=== PATIENT | female | born 1955 | race Caucasian/White ===

== ENCOUNTER → 2016-08-23 | Emergency (ER) | payer OTHER ==
[~2016-08-23] VITALS: Ht 157.5 cm; Wt 52.0 kg
[~2016-08-23] MED LIST: CLOP75TA28 PO; LORA0.5T PO
--- OUTSIDE RECORDS SUMMARY | 2016-08-23 11:15 | XMS REPORT | Referral Summary ---
Author Author [facility] Organization [facility] Address Unknown Phone Unavailable Care Team Providers Care Kindergarten Assistant Name Role Phone SindiCameron PCP [phone] Encounter GRIS [id number] Date(s): 09/22/14 - 09/22/14 [facility] [address] [place] [address] JG Final: PREOPERATIVE CARDIOVASCULAR EXAMINATION Final: OTHER SPECIFIED PREOPERATIVE EXAMINATION Final: Pre-Procedural Laboratory Examination Final: AORTIC VALVE DISORDERS Final: OSTIUM SECUNDUM TYPE ATRIAL SEPTAL DEFECT Final: Other Nonspecific Abnormal Finding of Lung Field Final: Long-Term (Current) Use of Anticoagulants Final: Long-Term (Current) Use of Other Medications Discharge Disposition: 01-Home or Self Care Attending Physician: Marcel Bush MD Vital Signs No data available for this section Problem List Condition Effective Dates Status Health Status Informant Acute Active pain(Confirmed) At risk of pressure Active sore(Confirmed) ASD (atrial septal Active patient defect)(Confirmed) History of Active patient TIAs(Confirmed) Impaired skin Active integrity(Confirmed) 1 Knowledge Active deficit(Confirmed)2 Vaginal dryness, Active menopausal(Confirmed ) 1Problem added automatically by system based on initiation of Impaired Skin Integrity Plan of [id number] added automatically by system based on initiation of Knowledge Deficit Plan of Care Allergies, Adverse Reactions, Alerts Substance Reaction Severity Status Bactrim Hives Active Medications aspirin 325 mg oral tablet 325 mg 1 tabs, Oral, Daily, 0 Refill(s) Start Date: 02/24/15 Status: Orderedatorvastatin 10 mg oral tablet 10 mg 1 tabs, Oral, Bedtime (once a day), # 30 tabs, 10 Refill(s) Start Date: 09/27/14 Status: OrderedB-Plex (Vitamin B Complex) oral tablet 1 tabs, Oral, Daily, 0 Refill(s) Start Date: 09/17/14 Status: OrderedCalcium 500+D 1 tabs, Chewed, Daily, 0 Refill(s) Start Date: 09/08/14 Status: OrderedImodium A-D See Instructions, 1 tab as needed after each loose stool, 0 Refill(s) Start Date: 09/17/14 Status: OrderedLORazepam 0.5 mg, Oral, Bedtime (once a day), 0 Refill(s) Start Date: 09/08/14 Status: OrderedPlavix 75 mg, Oral, Daily, 0 Refill(s) Start Date: 09/08/14 Status: OrderedPremarin Vaginal 0.5 g, Vaginal, Mon//, 0 Refill(s) Start Date: 02/24/15 Status: OrderedProbiotic Formula 1 caps, Oral, Daily, 0 Refill(s) Start Date: 09/17/14 Status: Ordered Results Hematology Most recent to 1 oldest [Reference Range]: WBC [4.8-10.8 8.2 10*3/uL 10*3/uL] (09/22/14 1:24 PM) RBC [4.00-5.20 4.57 10*6/uL 10*6/uL] (09/22/14 1:24 PM) Hgb [12.0-16.0 14.3 gm/dL gm/dL] (09/22/14 1:24 PM) Hct [37.0-47.0 %] 41.6 % (09/22/14 1:24 PM) MCV [82.0-99.0 fL] 91.0 fL (09/22/14 1:24 PM) MCH [27.0-32.0 pg] 31.3 pg (09/22/14 1:24 PM) MCHC [32.0-36.0 34.4 gm/dL gm/dL] (09/22/14 1:24 PM) RDW [11.5-14.5 %] 12.5 % (09/22/14 1:24 PM) Platelet [150-400 235 10*3/uL 10*3/uL] (09/22/14 1:24 PM) MPV [9.4-12.4 fL] 10.1 fL (09/22/14 1:24 PM) Immature 0.1 % Granulocytes (09/22/14 1:24 PM) [0.0-1.0 %] Neutrophils [51-75 53 % %] (09/22/14 1:24 PM) Lymphocytes [20-46 42 % %] (09/22/14 1:24 PM) Monocytes [4-11 %] 4 % (09/22/14 1:24 PM) Eosinophils [0-4 %] 1 % (09/22/14 1:24 PM) Basophils [0-2 %] 0 % (09/22/14 1:24 PM) Neutro Absolute 4.31 10*3 [1.90-7.00 10*3] (09/22/14 1:24 PM) Lymph Absolute 3.42 10*3 [0.80-3.30 10*3] *HI* (09/22/14 1:24 PM) [place] Absolute 0.33 10*3 [0.30-1.00 10*3] (09/22/14 1:24 PM) Eos Absolute 0.06 10*3 [0.00-0.50 10*3] (09/22/14 1:24 PM) Baso Absolute 0.02 10*3 [0.00-0.20 10*3] (09/22/14 1:24 PM) Nucleated RBC 0.0 /100 WBC Automated [0 /100 (09/22/14 1:24 PM) WBC] Coagulation Most recent to 1 oldest [Reference Range]: INR [0.9-1.2] 0.9 (09/22/14 1:24 PM) PTT [25.0-35.0] 27.6 (09/22/14 1:24 PM) Fibrinogen Lvl 226 mg/dL [187-520 mg/dL] (09/22/14 1:24 PM) Chemistry Most recent to 1 oldest [Reference Range]: Sodium Lvl [136-144 138 mEq/L mEq/L] (09/22/14 1:24 PM) Potassium Lvl 3.6 mEq/L [3.6-5.1 mEq/L] (09/22/14 1:24 PM) Chloride [99-109 104 mEq/L mEq/L] (09/22/14 1:24 PM) CO2 [22-32 mEq/L] 28 mEq/L (09/22/14 1:24 PM) AGAP [3-20] 6 (09/22/14 1:24 PM) BUN [4-20 mg/dL] 20 mg/dL (09/22/14 1:24 PM) Glucose Lvl [70-100 93 mg/dL mg/dL] (09/22/14 1:24 PM) Creatinine Lvl 0.97 mg/dL [0.44-1.03 mg/dL] (09/22/14 1:24 PM) eGFR [>60] 59 1 *ABN* (09/22/14 1:24 PM) Calcium Lvl 9.2 mg/dL [8.6-10.0 mg/dL] (09/22/14 1:24 PM) Albumin Lvl [3.5-4.8 4.3 gm/dL gm/dL] (09/22/14 1:24 PM) Total Protein 7.5 gm/dL [6.1-7.9 gm/dL] (09/22/14 1:24 PM) Globulin [1.9-4.3 3.2 gm/dL gm/dL] (09/22/14 1:24 PM) ALT [14-54 U/L] 16 U/L (09/22/14 1:24 PM) AST [15-41 U/L] 24 U/L (09/22/14 1:24 PM) Alk Phos [26-104 44 U/L U/L] (09/22/14 1:24 PM) Bili Total [0.2-1.2 0.8 mg/dL 2 mg/dL] (09/22/14 1:24 PM) Prealbumin [18-38 45 mg/dL mg/dL] *HI* (09/22/14 1:24 PM) Hgb A1c [4.1-5.6 %] 5.8 % *HI* (09/22/14 1:24 PM) eAvg Glucose 119.8 mg/dL (09/22/14 1:24 PM) 1Result Comment: Multiply eGFR results by 1.21 for race.2Result Comment: Naproxen, specifically the metabolite O-desmethylnaproxen, may cause spurious elevation in Total Bilirubin levels.Urinalysis Most recent to 1 oldest [Reference Range]: UA Color [place] *ABN* (6/22/15 1:24 PM) UA Appear Clear (09/22/14 1:24 PM) UA pH [5.0-8.0] 5.0 (09/22/14 1:24 PM) UA Leuk Est Trace [Negative] *ABN* (09/22/14 1:24 PM) UA Nitrite Negative [Negative] (09/22/14 1:24 PM) UA Protein Negative [Negative] (09/22/14 1:24 PM) UA Glucose Negative [Negative] (09/22/14 1:24 PM) UA Ketones Negative [Negative] (09/22/14 1:24 PM) UA Urobilinogen Negative [<1.0] (09/22/14 1:24 PM) UA Bili [Negative] Negative (09/22/14 1:24 PM) UA Blood [Negative] Trace *ABN* (09/22/14 1:24 PM) UA Spec Grav 1.022 [1.003-1.030] (09/22/14 1:24 PM) Type Clean Catch (09/22/14 1:24 PM) UA WBC [0-4] 0-2 (09/22/14 1:24 PM) UA RBC [0-2] 10-20 *ABN* (09/22/14 1:24 PM) Epithelial Cells 0-2 (09/22/14 1:24 PM) UA Bacteria Rare (09/22/14 1:24 PM) Microbiology Reports TEST: MRSA Screen Culture STATUS: Auth (Verified) BODY SITE: SOURCE: Nares COLLECTED DATE/TIME: 09/22/14 1:24 PMMRSA Screen CultureNo Methicillin Resistant Staphylococcus aureus isolated. Immunizations No data available for this section Procedures Procedure Date Related Diagnosis Body Site Repair Atrial Septal Defect1 09/24/14 section Ectopic Exploratory laparotomy Gallbladder 1auto-populated from documented surgical case Social History Social History Type Response Smoking Status Former smoker; Type: Cigarettes1 1Quit age 34 Assessment and Plan No data available for this section
[2016-08-23 12:08] LABS: BILIRUBIN,URINE Negative (Negative); CLARITY,URINE Clear; COLOR,URINE Yellow; GLUCOSE, URINE (UA) Negative (Negative); LEUKOCYTE ESTERASE ,URINE Negative (Negative); UROBILINOGEN,URINE 0.2 mg/dL (0.2-1.0)
[2016-08-23 12:11] LABS: BASOPHILS % (AUTO) 1 % (0-2); EOSINOPHILS # (AUTO) 0.1 10^3uL; EOSINOPHILS % (AUTO) 1 % (0-4); LYMPHOCYTES # (AUTO) 3.1 X10^3; MEAN CORPUSCULAR HGB CONC 33.8 g/dL (31.0-37.0); MEAN CORPUSCULAR VOLUME 89 FL (80-100); MEAN PLATELET VOLUME 10.6 FL (6.0-9.5); MONOCYTES # (AUTO) 0.5 X10^3; MONOCYTES % (AUTO) 8 % (3-11); NEUTROPHILS # (AUTO) 2.8 X10^3; NEUTROPHILS % (AUTO) 43 % (51-67); PLATELET COUNT 228 10^3uL (150-450); WHITE BLOOD COUNT 6.52 10^3uL (4.0-11.0)
[2016-08-23 12:18] LABS: URINE CENTRIFUGED VOLUME 12 mL
[2016-08-23 12:29] LABS: ALBUMIN 4.5 g/dL (3.4-5.0); ALKALINE PHOSPHATASE 62 U/L (38-126); ANION GAP 12.4 MEQ/L (3-15); BUN/CREATININE RATIO 15 (10-20); TOTAL PROTEIN 8.2 g/dL (6.4-8.5)
[2016-08-23 13:18] VITALS: BP 127/81
== END ==
LOC: ED 12:50
DX: I10 Essential (primary) hypertension (principal); R00.2 Palpitations
CPT/HCPCS: 36415; 80053; 81003; 81015; 84484; 85025; 85610; 93005; 93010; 99282; 99284